=== PATIENT | male | born 1940 | race Caucasian/White ===

== ENCOUNTER 2017-02-07 05:51 | Inpatient (IN) | payer MEDICARE, OTHER ==
[~2017-02-07 05:51] MED LIST: APPLE CIDER VINEGAR PO; CELEBREX200 M1 PO; CELEXA10 M1 PO; HYDROCHLOROTHIA25 M1 PO; HYDROCHLOROTHIAZIDE; KLONOPIN0.5 M1 PO; KLOR-CON 1010 ME1 PO; LIPO FLAVONOID PO; LISINOPRIL; LISINOPRIL40 M1 PO; NORCO 5/325 TAB1 TAB PO; NORVASC2.5 M1 PO; OMEPRAZOLE; PRILOSEC OTC20 M1 PO; SIMVASTATIN; TRIAMTERENE-HC1 EAC3 PO; TYLENOL EXTRA500 M1 PO; TYLENOL PM EX-1 EAC4 PO; ZOCOR20 M1 PO; [UNRECOGNIZED DRUG - OTHER] PO
[2017-02-08 06:13] LABS: BASO % 0.1 % (0-2); HCT-HEMATOCRIT 35.3 % (36.0-53.5); HGB-HEMOGLOBIN 11.9 gm/dl (13.5-17.0); IMMATURE GRANULOCYTES ABSOLUTE 0.04 tho/cmm (0-0.03); IMMATURE GRANULOCYTES PERCENT 0.2 % (0-0.3); LYMPH % 7.9 % (20-45); LYMPH ABSOLUTE COUNT 1.5 tho/cmm (0.8-4.5); MCH (MEAN CORPUSCULAR HGB) 30.3 pg (28.0-32.0); MCHC MEAN CORPUSCULAR HGB CONC 33.7 % (32.0-36.0); MCV (MEAN CELL VOLUME) 89.8 fl (82.0-96.0); MONO % 5.8 % (0-12); MONOCYTE ABSOLUTE COUNT 1.1 tho/cmm (0.0-1.2); PLATELET COUNT 189 tho/cmm (150-450); RED BLOOD COUNT 3.93 mil/cmm (4.40-5.70); RED CELL DISTRIBUTION WIDTH 13.4 % (12.4-16.4); WHITE BLOOD COUNT 18.5 tho/cmm (4.0-10.0)
[2017-02-09 05:46] LABS: BASO % 0.2 % (0-2); EOS % 2.1 % (0-7); EOSINOPHIL ABSOLUTE COUNT 0.2 tho/cmm (0.0-0.7); HGB-HEMOGLOBIN 10.7 gm/dl (13.5-17.0); IMMATURE GRANULOCYTES ABSOLUTE 0.02 tho/cmm (0-0.03); IMMATURE GRANULOCYTES PERCENT 0.2 % (0-0.3); LYMPH % 20.5 % (20-45); LYMPH ABSOLUTE COUNT 1.9 tho/cmm (0.8-4.5); MCH (MEAN CORPUSCULAR HGB) 30.4 pg (28.0-32.0); MCHC MEAN CORPUSCULAR HGB CONC 33.4 % (32.0-36.0); MCV (MEAN CELL VOLUME) 90.9 fl (82.0-96.0); MEAN PLATELET VOLUME 10.1 cmc (9.4-12.4); MONO % 7.3 % (0-12); MONOCYTE ABSOLUTE COUNT 0.7 tho/cmm (0.0-1.2); NEUTROPHIL ABSOLUTE COUNT 6.6 tho/cmm (1.6-8.0); NEUTROPHIL-AUTOMATED 6.6 tho/cmm (1.6-8.0); NEUTROPHILS % 69.7 % (40-80); PLATELET COUNT 149 tho/cmm (150-450); RED BLOOD COUNT 3.52 mil/cmm (4.40-5.70); RED CELL DISTRIBUTION WIDTH 13.8 % (12.4-16.4); WHITE BLOOD COUNT 9.4 tho/cmm (4.0-10.0)
[2017-02-09] MEDS ORDERED: ASPIRIN81 M1 PO (14:10)
[2017-02-09] MEDS ORDERED: ROXICODONE5 M2 PO (14:12)
[2017-02-09] MEDS ORDERED: ULTRAM50 M1 PO (14:15)
[2017-02-09] MEDS ORDERED: TYLENOL325 M2 PO (14:17)
== END 2017-02-09 15:25 | DRG 470 ==
LOC: SHSB 05:51 → ORE 08:20 → PACU 10:22 → 5EA 11:15
PROVIDERS: Internal Medicine; ADMIT Orthopaedic Surgery Foot and Ankle Surgery
PROC: 0SRC0J9 Replacement of Right Knee Joint with Synthetic Substitute, Cemented, Open Approach (ICD-10-PCS; principal; 2017-02-07)
DX: M17.11 Unilateral primary osteoarthritis, right knee (principal); I10 Essential (primary) hypertension; N40.0 Benign prostatic hyperplasia without lower urinary tract symptoms; E78.5 Hyperlipidemia, unspecified; F41.9 Anxiety disorder, unspecified; D72.829 Elevated white blood cell count, unspecified
CPT/HCPCS: C1713; C1776; J0171; J0690; J1885; J2270; J2795